=== PATIENT | male | born 1945 | race Caucasian/White ===

== ENCOUNTER 2018-03-26 20:12 | Observation (INO) ==
--- NOTE | 2018-03-26 20:46 | Emergency Department Note ---
Disposition Clinical Impression: Bronchitis, COPD with exacerbation Disposition: Admitted As Inpatient Condition: Fair Referrals: Ritchie Ellis MD [Primary Care Provider] - Forms: ED Satisfaction Letter Time of Disposition: 21:53 URI/Sore Throat HPI - General Chief Complaint: ED Upper Respiratory Infection Stated Complaint: sore throat/congestion/ cough Time Seen by Provider: 03/26/18 20:28 Source: patient, family Mode of arrival: private vehicle Limitations: no limitations Nursing Notes Reviewed: Yes Vital Signs Reviewed: Yes - History of Present Illness Pt Subjective Complaint: cough, sore throat, nasal congestion Onset (ago): day(s) (3 days) Duration: constant, gradually worsening Severity: severe Improves with: nothing Worsens with: exertion If sputum, description: yellow Context: sick contacts Associated symptoms: Reports: chills, voice changes, nasal congestion, sore throat, shortness of breath Treatments prior to arrival: other (Home medications but not working.) - Related Data Home Medications Medication Instructions Recorded Confirmed Aspirin 81 mg PO DAILY 12/28/14 03/26/18 [place]-3S/Dha/Epa/Fish Oil [Fish 1 tab PO DAILY 12/28/14 03/26/18 Oil 1,200 mg Softgel] Simvastatin [Zocor] 40 mg PO HS 12/28/14 03/26/18 amLODIPine [Norvasc] 10 mg PO DAILY 12/28/14 03/26/18 Albuterol Neb [Proventil Neb] 2.5 mg IH Q4HR 08/11/16 03/26/18 Albuterol Sulfate [Ventolin Hfa] 2 puff IH Q4H PRN 08/11/16 03/26/18 Budesonide/Formoterol 160/4.5 2 puff IH BIDR 08/11/16 03/26/18 [Symbicort 160/4.5] Metoprolol XL (24 HR) Succ [Toprol 100 mg PO DAILY 08/11/16 03/26/18 Xl] Multivitamin [One Daily 1 each PO DAILY 08/11/16 03/26/18 Multivitamin] OxyCODONE/APAP 5/325 [Percocet 1 each PO Q6HR PRN 08/11/16 03/26/18 5/325 MG] Oxygen 2 l NS AD PRN 08/11/16 03/26/18 Tiotropium [Spiriva] 18 mcg IH 0700 08/11/16 03/26/18 Allergies Allergy/AdvReac Type Severity Reaction Status Date / Time No Known Allergies Allergy Verified 08/11/16 11:58 All systems ED: reviewed and negative except as stated. Constitutional: Reports: chills ENT ED: Reports: ear pain, throat pain, congestion Cardiovascular: Reports: dyspnea on exertion. Denies: chest pain, palpitations Respiratory: Reports: cough, dyspnea, wheezes Gastrointestinal: Denies: abdominal pain, nausea, vomiting, diarrhea Integumentary: Denies: rash Neurological: Denies: headache URI PMH - Past Medical History Medical history: Reports: arthritis, COPD, coronary artery disease, hyperlipidemia, hypertension, myocardial infarction Surgical history: Reports: angioplasty/stent Psychiatric history: Reports: no psych history - Social History Smoking Status: Former smoker Alcohol use: Reports: none Drug use: Reports: none Physical Exam - General Limitations: no limitations General appearance: alert, in no apparent distress - Head Head exam: atraumatic, normocephalic, normal inspection - Eye Eye exam: Present: normal appearance, PERRL, EOMI. Absent: scleral icterus, conjunctival injection - ENT ENT exam: normal exam, normal oropharynx, mucous membranes moist, TM's normal bilaterally, normal external ear exam - Neck Neck exam: Present: normal inspection, full ROM, trachea midline. Absent: meningismus - Chest Chest inspection: Present: normal inspection, symmetric chest wall rise. Absent: tenderness - Respiratory Respiratory exam: Present: wheezes (Scattered). Absent: respiratory distress - Cardiovascular Cardiovascular exam: Present: normal rhythm, tachycardia, normal heart sounds - Abdominal Exam Abdominal exam: Present: soft, Non-Tender, normal bowel sounds - Extremities Exam Extremities exam: Present: normal inspection. Absent: pedal edema - Neurological Exam Neurological exam: Present: alert, oriented X3 - Psychiatric Psychiatric exam: Present: normal affect, normal mood - Skin Skin exam: Present: warm, dry. Absent: rash Course Course Narrative: Patient presents with what started out as sinus congestion and postnasal drainage and then he started developing a sore throat and now has a raspy voice. It extended into his chest and now he is coughing and producing a lot of yellow sputum and noticing wheezing. He is felt some chills at home. On examination he is got some scattered wheezing in his lungs but his vital signs look okay except for some tachycardia. Patient has a history of COPD. I will initiate a workup for shortness of breath and start some doing nebs and Solu- Medrol. Disposition will be based on diagnostic results and reevaluation. - Reevaluation(s) Reevaluation #1: Patient says he feels better after breathing treatments. His chest x-ray was negative. However his heart rates 125. Although the patient seems to be downplaying his shortness of breath severity, his says that she thinks he did not pass out every time he gets up and tries to walk around at home. She says she thought he was going to on her last night because he was so short of breath. Given the severity of the symptoms in a patient with COPD who is alr kylie using his breathing treatments at home, I think he needs to be admitted to the hospital. I am starting him on Rocephin and Zithromax and I will talk to the hospitalist about getting him admitted. Time: 21:53 - Consultations Consultation #1: Dr. Farooq, hospitalist - I discussed the case with Dr. Farooq. He is accepted patient for admission to the hospital. Time: 23:48 Vital Signs Temperature 98.0 F 03/26/18 20:15 Pulse Rate 110 03/26/18 20:15 Respiratory Rate 18 03/26/18 20:15 Blood Pressure 105/72 03/26/18 20:15 O2 Sat by Pulse Oximetry 90 03/26/18 20:15 Temperature 98.0 F 03/26/18 20:15 Pulse Rate 122 03/26/18 21:51 Respiratory Rate 18 03/26/18 21:51 Blood Pressure 106/71 03/26/18 22:23 O2 Sat by Pulse Oximetry 95 03/26/18 21:51 Oxygen Delivery Oxygen Delivery Room Air Upper Respiratory Infection - Medical Records Medical records reviewed: Yes I reviewed the patient's medical records. - Lab Data Lab results reviewed: Yes I reviewed the patient's lab results. Result diagrams: 03/26/18 22:01 03/26/18 22:01 Lab Results 03/26/18 03/26/18 Range/Units 22:01 22:01 WBC 11.0 (4.3-11.1) K/mcL RBC 4.89 (4.19-5.50) M/mcL Hgb 14.9 (12.9-16.9) g/dL Hct 43.4 (37.5-50.1) % MCV 88.8 (83.0-100.0) fL MCH 30.5 (28.0-33.3) pg MCHC 34.3 (31.6-35.5) g/dL RDW 13.0 (11.5-14.5) % Plt Count 190 (140-400) K/mcL MPV 10.2 (9.4-12.4) fL Immature Gran % 0.4 (0-4) % Seg Neutrophils % 56.2 % Lymphocytes % 31.5 % Monocytes % 10.3 % Eosinophils % 1.3 % Basophils % 0.3 % Neutrophils # 6.2 (1.6-8.9) K/mcL Lymphocytes # 3.5 (0.6-4.6) K/mcL Monocytes # 1.1 (0.0-1.3) K/mcL Eosinophils # 0.1 (0.0-0.6) K/mcL Basophils # 0.0 (0.0-0.2) K/mcL Sodium 142 (136-145) mEq/L Potassium 3.4 L (3.5-5.1) mEq/L Chloride 106 (98-107) mEq/L Carbon Dioxide 27 (23-29) mEq/L BUN 11 (8-23) mg/dL Creatinine 0.83 (0.70-1.30) mg/dL Est GFR ( Amer) > 60 (> 60) Est GFR (Non-Af Amer) > 60 (> 60) BUN/Creatinine Ratio 13 (6-26) Glucose 163 H (70-105) mg/dL Calculated Osmolality 297 (280-300) Calcium 8.4 L (8.6-10.3) mg/dL Troponin I < 0.03 (< 0.04) ng/mL - Radiology Data Radiology results reviewed: Yes I reviewed the patient's radiology results.
[2018-03-26] MEDS ORDERED: Ipratropium/Albuterol Neb 3 ML IH ONE (20:48)
[2018-03-26] MEDS ORDERED: 0.9 % Sodium Chloride 1,000 ML IVC ONE (20:48)
[2018-03-26] MEDS ORDERED: methylPREDNISolone 125 MG/2 ML VIAL IVP ONE (20:48)
[2018-03-26] MEDS ORDERED: Azithromycin 500 MG in D5% in Water 250 ML IVPB ONE (21:51)
[2018-03-26 22:13] LABS: Basophils % 0.3 %; Eosinophils # 0.1 K/mcL (0.0-0.6); Eosinophils % 1.3 %; Hematocrit 43.4 % (37.5-50.1); Hemoglobin 14.9 g/dL (12.9-16.9); Immature Granulocytes % 0.4 % (0-4); Lymphocytes # 3.5 K/mcL (0.6-4.6); Lymphocytes % 31.5 %; Mean Corpuscular HGB Conc 34.3 g/dL (31.6-35.5); Mean Corpuscular Hemoglobin 30.5 pg (28.0-33.3); Mean Corpuscular Volume 88.8 fL (83.0-100.0); Mean Platelet Volume 10.2 fL (9.4-12.4); Monocytes # 1.1 K/mcL (0.0-1.3); Monocytes % 10.3 %; Neutrophils # 6.2 K/mcL (1.6-8.9); Platelet Count 190 K/mcL (140-400); Red Blood Count 4.89 M/mcL (4.19-5.50); Segmented Neutrophils % 56.2 %
[2018-03-26 22:30] LABS: BUN/Creatinine Ratio 13 (6-26); Blood Urea Nitrogen 11 mg/dL (8-23); Calcium 8.4 mg/dL (8.6-10.3); Carbon Dioxide 27 mEq/L (23-29); Chloride 106 mEq/L (98-107); Glucose 163 mg/dL (70-105); Osmolality,Calculated 297 (280-300); Potassium 3.4 mEq/L (3.5-5.1); Sodium 142 mEq/L (136-145); eGFR For Non-African Americans > 60 (> 60)
[2018-03-26 22:35] LABS: Troponin I < 0.03 ng/mL (< 0.04)
[2018-03-27] MEDS ORDERED: Ipratropium/Albuterol Neb 3 ML IH SCH (01:10)
[2018-03-27] MEDS ORDERED: Naloxone 0.4 MG/ML INJ IVP PRN (01:10)
[2018-03-27] MEDS ORDERED: 0.9 % Sodium Chloride 1,000 ML IVC SCH (01:10)
[2018-03-27] MEDS ORDERED: Levalbuterol Neb 1.25 MG/3 ML IH PRN (01:53)
[2018-03-27] MEDS ORDERED: MethylPREDNISolone 40 MG/ML VIAL IVP ONE (05:00)
[2018-03-27] MEDS ORDERED: Tiotropium 18 MCG inhalation IH SCH (07:00)
[2018-03-27] MEDS ORDERED: Aspirin 81 MG TAB.CHEW PO SCH (09:00)
[2018-03-27] MEDS ORDERED: Metoprolol XL (24 HR) Succ 50 MG TAB.ER.24H PO SCH (09:00)
[2018-03-27] MEDS ORDERED: amLODIPine 5 MG TABLET PO SCH (09:00)
[2018-03-27] MEDS ORDERED: Budesonide/Formoterol 160/4.5 1 PUFF INH IH SCH (10:00)
[2018-03-27 10:48] VITALS: BP 135/79
--- NOTE | 2018-03-27 12:04 | Internal Med History&Physical ---
Date of Encounter: 03/27/18 Time of Encounter: 11:30 Assessment and Plan (1) COPD with exacerbation Current visit: Yes Status: Acute He was given Rocephin and Zithromax with Solu-Medrol in emergency room. He feels his breathing is back to baseline. (2) Hypokalemia Current visit: Yes Status: Acute Etiology not obvious. He denies vomiting diarrhea or diuretic use. Supplemental potassium will be started. (3) Borderline type 2 diabetes mellitus Current visit: Yes Status: Chronic PCP can monitor hemoglobin A1c. (4) CAD (coronary artery disease) Current visit: Yes Status: Chronic Continue aspirin, Norvasc, and Zocor Qualifiers: Coronary Disease-Associated Artery/Lesion type: [place] artery [place] vs. transplanted heart: [place] heart Associated angina: without angina Qualified Code(s): I25.10 - Atherosclerotic heart disease of [place] coronary artery without angina pectoris (5) Hypertension Current visit: Yes Status: Chronic Continue Norvasc Qualifiers: Hypertension type: essential hypertension Qualified Code(s): I10 - Essential (primary) hypertension Internal Medicine - H&P: HPI Chief complaint: Dyspnea Admitted From: Emergency Dept Plans for Post Hospital Care: Home History of present illness: Mr. Grove is a 72 year old male who came to emergency room complaining of incr eased dyspnea over the preceding 24 hours. He reported feelings of having "a cold" with sore throat and hoarseness. He reports a cough productive of yellow sputum. He was evaluated in emergency room and felt to have exacerbation of COPD with possible bronchitis. He was admitted to [facility] floor for ongoing care needs. Respiratory history is significant for having smoked from age [age]. He had pulmonary function testing 08/26/2016 which showed moderate obstructive airway disease with no improvement postbronchodilator. He uses oxygen at home but states he wishes to change oxygen suppliers due to poor service. He reports he has been out of Symbicort for several weeks. Past Med Surg Social Fam HX - Past Medical History Medical history: arthritis, COPD, coronary artery disease, hyperlipidemia, hypertension, myocardial infarction Additional medical history: stents x3 Psychiatric history: no psych history - Past Surgical History Surgical History: angioplasty/stent, herniorrhaphy Additional surgical history: tonsils,nerve - Social History Smoking Status: Former smoker Smokeless Tobacco Status: No Alcohol use: none Drug use: none - Family History Mother Hx Family Cardiac Disorders: Yes Hx Family Respiratory Disorders: Yes Hx Family Cancer: Yes Father Hx Family Cardiac Disorders: Yes Hx Family Respiratory Disorders: Yes Hx Family Cancer: Yes Internal Medicine - H&P: Meds Aspirin 81 mg PO DAILY 12/28/14 [History] [place]-3S/Dha/Epa/Fish Oil [Fish Oil 1,200 mg Softgel] 1 tab PO DAILY 12/28/14 [History] Simvastatin [Zocor] 40 mg PO HS 12/28/14 [History] amLODIPine [Norvasc] 10 mg PO DAILY 12/28/14 [History] Albuterol Neb [Proventil Neb] 2.5 mg IH Q4HR 08/11/16 [History] Albuterol Sulfate [Ventolin Hfa] 2 puff IH Q4H PRN 08/11/16 [History] Budesonide/Formoterol 160/4.5 [Symbicort 160/4.5] 2 puff IH BIDR 08/11/16 [History] Metoprolol XL (24 HR) Succ [Toprol Xl] 100 mg PO DAILY 08/11/16 [History] Multivitamin [One Daily Multivitamin] 1 each PO DAILY 08/11/16 [History] OxyCODONE/APAP 5/325 [Percocet 5/325 MG] 1 each PO Q6HR PRN 08/11/16 [History] Oxygen 2 l NS AD PRN 08/11/16 [History] Tiotropium [Spiriva] 18 mcg IH 0700 08/11/16 [History] Allergy/AdvReac Type Severity Reaction Status Date / Time No Known Allergies Allergy Verified 08/11/16 11:58 All Systems PM: A 10-system review of systems was performed and is negative for pertinent findings except as documented above in the HPI. Review of systems: Gen.: He states his weight has been stable the past few months Cardiovascular: Has history of hypertension. He has known ASHD and thinks he possibly had NC in the past. He reports 3 stents were placed approximately 2012. 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 He denies heart failure DVT or pulmonary embolus. Respiratory: As per history of present illness GI: He denies disorders of his liver gallbladder or exocrine pancreas. He has had umbilical hernia repair. : He denies hematuria dysuria or kidney stones Neurologic: He denies large distribution strokes or seizures. Endocrine: He reports diagnosis of borderline diabetes. He has hyperlipidemia but denies thyroid disease. Hematology/oncology: He denies blood disorders cancers or anemia Psychiatric: He has anxiety and depression but denies other mental health i ssues. [place] skeletal: He has DJD. He reports spinal cyst surgically removed. He had (?) trigeminal neuralgia with injections and has left face numbness. - Constitutional Vitals: Temp Pulse Resp BP Pulse Ox 98 F 101 15 135/79 93 03/27/18 07:04 03/27/18 10:47 03/27/18 07:04 03/27/18 10:47 03/27/18 10:47 Exam: Gen.: He is a well-developed well-nourished male who appears in no acute distress at present time HEENT: Head is atraumatic and normocephalic. Eyes: EOMI. There is no scleral icterus. Mouth: Mucosa is moist. Neck: Supple and nontender. There is no thyromegaly or adenopathy noted. Heart: Regular without murmurs gallops or ectopics Lungs: No wheezes or crackles are heard. Abdomen: Soft and nontender. No masses or guarding are noted. Extremities: There is no cyanosis edema or clubbing noted. Dorsalis pedis and posterior tibial pulses are 1-2 over 2 bilaterally. He has mild DJD changes of his hands. Neurologic: Mental status: He is talkative and a good historian. Cranial nerves: Smile is symmetric. Forehead wrinkles bilaterally. Tongue protrudes midline. EOMI. Motor: There is no pronator drift. Cerebellar: Fair to nose is intact bilaterally. Skin: Warm and dry Internal Med - H&P Results - Labs CBC & Chem 7: 03/26/18 22:01 03/26/18 22:01 Labs: Short CBC 03/26/18 Range/Units 22:01 WBC 11.0 (4.3-11.1) K/mcL Hgb 14.9 (12.9-16.9) g/dL Hct 43.4 (37.5-50.1) % Plt Count 190 (140-400) K/mcL Neutrophils # 6.2 (1.6-8.9) K/mcL BMP 03/26/18 22:01 Sodium 142 Potassium 3.4 L Chloride 106 Carbon Dioxide 27 BUN 11 Creatinine 0.83 Glucose 163 H Calcium 8.4 L Cardiac Enzymes 03/26/18 Range/Units 22:01 Troponin I < 0.03 (< 0.04) ng/mL - Impressions ITS Impressions Chest X-Ray 03/26/18 20:27 IMPRESSION: No acute cardiopulmonary disease. D/ / 03/26/2018 21:13:27 Leo Bobby MD / [email or web address] Interpreting Provider: Leo Bobby MD
--- NOTE | 2018-03-27 12:18 | Discharge Summary ---
Orders not resulted at time of discharge: Pending orders 03/26/18 22:09 Culture,Blood [BC] Stat Date of Encounter: 03/27/18 Time of Encounter: 11:30 - Discharge Diagnosis (1) COPD with exacerbation Priority: Primary Status: Acute (2) Hypokalemia Priority: Secondary Status: Acute (3) Borderline type 2 diabetes mellitus Priority: Secondary Status: Chronic (4) CAD (coronary artery disease) Priority: Secondary Status: Chronic Qualifiers: Coronary Disease-Associated Artery/Lesion type: [place] artery [place] vs. transplanted heart: [place] heart Associated angina: without angina Qualified Code(s): I25.10 - Atherosclerotic heart disease of [place] coronary artery without angina pectoris (5) Hypertension Priority: Secondary Status: Chronic Qualifiers: Hypertension type: essential hypertension Qualified Code(s): I10 - Essential (primary) hypertension Hospital course: Mr. Grove is a 72 year old male who came to emergency room complaining of inc reased dyspnea over the preceding 24 hours. He reported feelings of having "a cold" with sore throat and hoarseness. He reports a cough productive of yellow sputum. He was evaluated in emergency room and felt to have exacerbation of COPD with possible bronchitis. He was admitted to [facility] floor for ongoing care needs. Initial orders were written by the emergency room physician. I saw him on March 27 and performed a history physical and discharge. He was given Rocephin and Zithromax with Solu-Medrol in emergency room. When I saw him he reported his breathing was back to baseline. He had remained afebrile and other vitals were stable during his hospital stay. He wished to be discharged home which I felt was reasonable. Room air oximetry will be checked on 6 minute walk to determine if home oxygen is needed. Etiology of hypokalemia was not obvious. He will be started on supplemental potassium chloride. His PCP can monitor labs. There were no other new problems and on March 27 he was discharged home. He will follow with his PCP Dr. Ritchie Ellis within 1 week. - Time Spent with Patient Total time spent providing and/or coordinating discharge services: - Discharge Medications Prescriptions: Cefuroxime PO [Ceftin] 500 mg PO Q12HR #6 tablet Azithromycin [Zithromax] 250 mg PO DAILY #3 tablet Budesonide/Formoterol 160/4.5 [Symbicort 160/4.5] 2 puff IH BIDR #1 inh Lactobacillus [Culturelle] 1 each PO BID #6 cap.sprink Potassium Chloride 10 meq PO DAILY #30 tab.er.prt predniSONE [PredniSONE] 10 mg PO BIDWM #6 tablet Home Medications: Aspirin 81 mg PO DAILY 12/28/14 [History] [place]-3S/Dha/Epa/Fish Oil [Fish Oil 1,200 mg Softgel] 1 tab PO DAILY 12/28/14 [History] Simvastatin [Zocor] 40 mg PO HS 12/28/14 [History] amLODIPine [Norvasc] 10 mg PO DAILY 12/28/14 [History] Albuterol Neb [Proventil Neb] 2.5 mg IH Q4HR 08/11/16 [History] Albuterol Sulfate [Ventolin Hfa] 2 puff IH Q4H PRN 08/11/16 [History] Metoprolol XL (24 HR) Succ [Toprol Xl] 100 mg PO DAILY 08/11/16 [History] Multivitamin [One Daily Multivitamin] 1 each PO DAILY 08/11/16 [History] OxyCODONE/APAP 5/325 [Percocet 5/325 MG] 1 each PO Q6HR PRN 08/11/16 [History] Oxygen 2 l NS AD PRN 08/11/16 [History] Tiotropium [Spiriva] 18 mcg IH 0700 08/11/16 [History] Azithromycin [Zithromax] 250 mg PO DAILY #3 tablet 03/27/18 [Rx] Budesonide/Formoterol 160/4.5 [Symbicort 160/4.5] 2 puff IH BIDR #1 inh 03/27/18 [Rx] Cefuroxime PO [Ceftin] 500 mg PO Q12HR #6 tablet 03/27/18 [Rx] Lactobacillus [Culturelle] 1 each PO BID #6 cap.sprink 03/27/18 [Rx] Potassium Chloride 10 meq PO DAILY #30 tab.er.prt 03/27/18 [Rx] predniSONE [PredniSONE] 10 mg PO BIDWM #6 tablet 03/27/18 [Rx] Allergies/Adverse Reactions: Allergy/AdvReac Type Severity Reaction Status Date / Time No Known Allergies Allergy Verified 08/11/16 11:58 Date of admission: 03/27/18 00:21 Primary care physician: Ritchie Ellis MD - Constitutional Vitals: Temp Pulse Resp BP Pulse Ox 98 F 101 15 135/79 93 03/27/18 07:04 03/27/18 10:47 03/27/18 07:04 03/27/18 10:47 03/27/18 10:47 - Patient Status Disposition: Home, Self-Care Condition: Fair - Discharge Instructions Follow Up With: Ritchie Ellis MD [Primary Care Provider] - 1 week - Diet and Activity Activity: resume usual activities as tolerated Diet: advance to your usual diet
[2018-03-27] MEDS ORDERED: Azithromycin 500 MG in D5% in Water 250 ML IVPB SCH (22:00)
[2018-03-27] MEDS ORDERED: cefTRIAXone 1,000 MG in Water for inj. (sterile) 20 ML 10 ML IVPB SCH (22:00)
== END 2018-03-27 13:30 | disposition home or self-care (01) ==
LOC: EMEROOPIK 20:12 → INPPIK 20:12
PROVIDERS: ADMIT Internal Medicine; ATTEND Internal Medicine